=== PATIENT | female | born 1960 | race Caucasian/White ===

== ENCOUNTER 2021-02-03 10:14 | Emergency (ER) | payer MEDICARE ==
[~2021-02-03] VITALS: Ht 157.5 cm; Wt 77.2 kg
[~2021-02-03 10:14] MED LIST: ALPR0.5T; ALPR0.5T5; ALPR1TAB6 PO; FENT1PAT17 TP; LOPE1TAB4 PO; OXYC10TA PO; TOPI100T8 PO; TRAZ-118 PO; VENL150C PO; ZOLP10TA; [UNRECOGNIZED DRUG - OTHER]; [UNRECOGNIZED DRUG - OTHER]
--- NOTE | 2021-02-03 10:40 | PHYS DOC ---
Past Medical History Past Medical History: Hypertension Past Surgical History: Hysterectomy Additional Past Surgical Histo: Back surgery, neck surgery Alcohol Use: None Drug Use: None General Adult EDM: Chief Complaint: MULTIPLE COMPLAINTS HPI: HPI: 60 yo F PMH HTN, anxiety and depresssion, presents to the ED with complaints of chronic upper abdominal pain that she has been experiencing is November of this year. Reports she saw her primary care physician 2 weeks ago and was prescribed 2 antibiotics and Pepcid to treat " stomach infection." Reports her primary care physician ordered an ultrasound. She later went and saw Dr. Oliveira performed a CT image of the abdomen. Patient is unsure of the results. Has also been to "many urgent cares," for this and has been treated for "stomach and breast infections." States she has been referred to GI but is unable to get in. Symptoms are worse after she eats. Review of Systems: Review of Systems: Constitutional: Denies fever or chills. [] Eyes: Denies change in visual acuity. [] HENT: Denies nasal congestion or sore throat. [] Respiratory: Denies cough or shortness of breath. [] Cardiovascular: Denies chest pain or edema. [] GI: Denies vomiting, bloody stools or diarrhea. [] : Denies dysuria. [] Musculoskeletal: Denies back pain or joint pain. [] Integument: Denies rash. [] Neurologic: Denies headache, focal weakness or sensory changes. [] Endocrine: Denies polyuria or polydipsia. [] Lymphatic: Denies swollen glands. [] Psychiatric: Denies depression or anxiety. [] Heart Score: C/O Chest Pain: No Risk Factors: Risk Factors: DM, Current or recent (<one month) smoker, HTN, HLP, family history of CAD, obesity. Risk Scores: Score 0 - 3: 2.5% MACE over next 6 weeks - Discharge Home Score 4 - 6: 20.3% MACE over next 6 weeks - Admit for Clinical Observation Score 7 - 10: 72.7% MACE over next 6 weeks - Early Invasive Strategies Allergies: Allergies: Allergies Coded Allergies Type Severity Reaction Last Updated Verified No Known Drug Allergies 11/19/13 No Physical Exam: PE: Constitutional: Appears fatigued, tired but not toxic, obese HENT: Normocephalic, atraumatic, mildly dry mucous membranes Eyes: EOMI, conjunctiva normal, no discharge. Neck: Normal range of motion, supple, Cardiovascular: S1/2 present, regular rhythm Lungs & Thorax: Speaking in full sentences, bilateral equal chest rise, no tachypnea or increased work of breathing Abdomen: soft, no tenderness, Skin: Warm, dry, no erythema, no rash. [] Back: No tenderness, no CVA tenderness. [] Extremities: No tenderness, no cyanosis, no lower extremity edema Neurologic: Alert and oriented X 3, normal motor function, normal sensory function, no focal deficits noted. [] Psychologic: Affect normal, judgement normal, mood normal. [] EKG: EKG: Sinus rhythm at 78 bpm, no axis deviation, normal intervals, no T wave inversions, no ST elevations or ST depressions Radiology/Procedures: Radiology/Procedures: IMAGING REPORT Signed PATIENT: YOSSI EUGENE LACCOUNT: [id number] : 1960 LOCATION: ER AGE: 60 SEX: F EXAM STATUS: REG ER ORD. PHYSICIAN: VALERIA DE LA FUENTE DO REASON: abd pain PROCEDURE: PORTABLE CHEST 1V EXAM: XR CHEST 1V 02/03/2021 11:42 AM CLINICAL INDICATION: Abdominal pain COMPARISON: Chest radiograph 11/24/2013 TECHNIQUE: AP upright view of the FINDINGS: The heart is normal in size. Lungs are well-expanded. No consolidation, pleural effusion, or pneumothorax. Cervical fusion hardware is noted. IMPRESSION: No acute cardiopulmonary abnormality. Electronically signed by: Yamila Byrd MD (02/03/2021 12:35 PM) [id number] DICTATED and SIGNED BY: YAMILA BYRD MD DATE: 02/03/21 [id number] IMAGING REPORT Signed PATIENT: YOSSI EUGENE LACCOUNT: [id number] : 1960 LOCATION: ER AGE: 60 SEX: F EXAM STATUS: REG ER ORD. PHYSICIAN: VALERIA DE LA FUENTE DO REASON: abd pain PROCEDURE: CT ABD PELV W/ IV CONTRST ONLY Exam: CT abdomen/pelvis with intravenous contrast Indication: Abdominal pain Comparison: CT abdomen and pelvis 06/19/2010 Technique: Helical CT imaging performed of the abdomen and pelvis after the intravenous administration of Omnipaque 300 and contrast. Sagittal and coronal reformats were obtained. One or more of the following individualized dose reduction techniques were utilized for this examination: 1. Automated exposure control 2. Adjustment of the mA and/or kV according to patient size 3. Use of iterative reconstruction technique. Findings: Lower chest: Mild atelectasis in the lingula. Heart is normal in size. Liver: Normal. Gallbladder/Biliary Tree: The gallbladder is surgically absent. Mild common bile duct dilation is likely related to postcholecystectomy state. Pancreas: Unremarkable. Spleen: Normal. Adrenal Glands: Normal. Kidneys/Ureters/Bladder: Kidneys are normal in size. No hydronephrosis. Ureters and bladder are normal. Reproductive Organs: The uterus is surgically absent. No adnexal mass. Stomach, small bowel, and colon: Small hiatal hernia. No small bowel obstruction. Colon is normal. The appendix is not visualized but there is no inflammation in the right lower quadrant. Vasculature: Abdominal aorta is normal in caliber. Lymph Nodes: No lymphadenopathy. Peritoneum and retroperitoneum: There is no free fluid or free air. Bones: There is severe disc space narrowing at L4-L5 uncovering a disc bulge resulting in moderate canal and moderate to severe bilateral foraminal narrowing. Moderate disc space narrowing at L5-S1 with a disc bulge and moderate right foraminal narrowing. Moderate disc space narrowing at L5-S1 with endplate sclerosis and vacuum disc phenomenon. Impression: 1. No acute abnormality in the abdomen or pelvis. 2. Small hiatal hernia. 3. Degenerative disc disease at L4-L5 and L5-S1. Electronically signed by: Yamila Byrd MD (02/03/2021 1:00 PM) [id number] DICTATED and SIGNED BY: YAMILA BYRD MD DATE: 02/03/21 [id number] Course & Med Decision Making: Course & Med Decision Making Pertinent Labs and Imaging studies reviewed. (See chart for details) Patient presents the ED with complaints of chronic epigastric abdominal pain for the past 2 months. ED work-up does not reveal any acute pathology. Will benefit from GI evaluation. Patient very pleased with ketamine which has resolved her pain. Antibiotics prescribed for UTI. Will discharge home with strict ED return precautions were given for flulike symptoms, nausea and vomiting with dehydration and severe pain. Encouraged urgent outpatient follow- up with PMD and GI. Life-threatening processes were considered but are low suspicion at this time, given history, physical exam and ED workup. Pt was educated on all prescription medications and adverse effects. All patient's questions were answered and pt was stable at time of discharge. Life/limb-threatening differential includes but is not limited to, aortic dissection, aortic aneurysm, acute coronary syndrome, surgical abdomen (appendicitis, cholecystitis, ischemic bowel, strangulated hernia, etc), bowel obstruction or volvulus, bladder outlet obstruction, gastrointestinal bleeding, inflammatory bowel disease, peptic ulcer disease, ACS/CAD, sepsis, diverticular disease, ureterolithiasis, nephrolithiasis, ovarian or testicular torsion, ectopic , vaginal hemorrhage, or genitourinary infection. I spoken with the patient and her caregivers. I explained the patient's condition, diagnoses and treatment plan based on the information available to me at this time. I have answered the patient and her caregiver's questions and addressed any concerns. The patient and her caregivers have a good understanding of patient's diagnosis, condition and treatment plan as can be expected at this point. Vital signs have been stable. Patient's condition is stable and appropriate for discharge from the emergency department. Patient will pursue further outpatient evaluation with primary care physician or other designated or consulting physician as outlined in the discharge instructions. The patient and/or caregivers are agreeable to this plan of care and follow-up instructions have been explained in detail. The patient and/or caregivers have received these instructions in written form and have expressed an understanding of the discharge instructions. The patient and/or caregivers are aware that any significant change of condition or worsening of symptoms should prompt immediate return to this or the closest emergency department or call to 911. Ju Disclaimer: Ju Disclaimer: This electronic medical record was generated, in whole or in part, using a voice recognition dictation system. Departure Departure Impression: Primary Impression: Chronic abdominal pain Additional Impression: UTI (urinary tract infection) Disposition: 01 DC HOME SELF CARE/HOMELESS Condition: STABLE Referrals: NICK PANDYA (PCP) in 24-48 hours Patient Instructions: Abdominal Pain, Urinary Tract Infection Additional Instructions: FOLLOW UP WITH GASTROENTEROLOGY: Gastroenterology [facility] Address: [address] [place] [address] EMERGENCY DEPARTMENT GENERAL DISCHARGE INSTRUCTIONS Thank you for coming to [facility] Emergency Department (ED) today and trusting us with you care. We trust that you had a positive experience in our Emergency Department. If you wish to speak to the department management, you may call the Director at [phone]. YOUR FOLLOW UP INSTRUCTIONS ARE FOLLOWS: 1. Do you have a private Doctor? If you do not have a private doctor, please ask for a resource list of physicians or clinics that may be able to assist you with follow up care. 2. The Emergency Physicain has interpreted your x-rays. The X-Ray specialist will also review them. If there is a change in the findings, you will be notified in 48 hours when at all possible. 3. A lab test or culture has been done, your results will be reviewed and you will be notified if you need a change in treatment. ADDITIONAL INSTRUCTIONS AND INFORMATION: 1. Your care today has been supervised by a physician who is specially trained in emergency care. Many problems require more than one evaluation for a complete diagnosis and treatment. We recommend that you schedule your follow up appointment as recommended to ensure complete treatment of you illness or injury. If you are unable to obtain follow up care and continue to have a problem, or if your condition worsens, we recommend that you return to the ED. 2. We are not able to safely determine your condition over the phone nor are we able to give sound medical advice over the phone. For these safety reasons, if you call for medical advice we will ask you to come to the ED for further evaluation. 3. If you have any questions regarding these discharge instructions please call the ED at [phone]. SAFETY INFORMATION: In the interest of safety, wellness, and injury prevention; we encourage you to wear your sealbelt, if you smoke; quite smoking, and we encourage family to use a protective helmet for bicycling and other sporting events that present an increased risk for head injury. IF YOUR SYMPTOMS WORSEN OR NEW SYMPTOMS DEVELOP, OR YOU HAVE CONCERNS ABOUT YOUR CONDITION; OR IF YOUR CONDITION WORSENS WHILE YOU ARE WAITING FOR YOUR FOLLOW UP APPOINTMENT; EITHER CONTACT YOUR PRIMARY CARE DOCTOR, THE PHYSICIAN WHOSE NAME AND NUMBER YOU WERE GIVEN, OR RETURN TO THE ED IMMEDIATELY. Scripts Cefpodoxime Proxetil (CEFPODOXIME PROXETIL) 200 Mg Tablet 1 TAB PO BID for 10 Days, #20 TAB Prov: VALERIA DE LA FUENTE DO 02/03/21 VALERIA DE LA FUENTE DO Feb 03, 2021 10:40
[2021-02-03 11:14] LABS: BILIRUBIN,URINE SMALL (NEG); CLARITY,URINE CLOUDY; COLOR,URINE AMBER; NITRITE,URINE NEGATIVE (NEG); PH,URINE 5.5 (<5.0-8.0); PROTEIN,URINE 30 mg/dL (NEG-TRACE)
[2021-02-03 11:20] LABS: BARBITURATES NEG (NEG); BENZODIAZEPINES NEG (NEG); CANNABINOIDS NEG (NEG); COCAINE NEG (NEG); METHADONE NEG (NEG); OPIATES POS (NEG); PHENCYCLIDINE NEG (NEG)
[2021-02-03 11:21] LABS: AMPHETAMINE/METHAMPHETAMINE NEG (NEG)
[2021-02-03] MEDS ORDERED: KETAMINE HCL 500 MG/10 ML VIAL. IV ONE (11:30)
[2021-02-03] MEDS ORDERED: METOCLOPRAMIDE HCL 10 MG/2 ML VIAL. IVP ONE (11:30)
[2021-02-03] MEDS ORDERED: FAMOTIDINE 20 MG/2 ML VIAL IVP ONE (11:30)
[2021-02-03 11:35] LABS: BACTERIA,URINE FEW /HPF (0-FEW); HYALINE CASTS, URINE FEW /HPF; RBC,URINE RARE /HPF (0-2)
[2021-02-03 11:36] LABS: AMORPHOUS SEDIMENT,UR PRESENT /HPF
[2021-02-03 11:48] LABS: BASO % 0 % (0-3); EOS # 0.1 x10^3/uL (0.0-0.7); EOS % 1 % (0-3); HEMATOCRIT 36.4 % (36.0-47.0); HEMOGLOBIN 12.3 g/dL (12.0-15.5); LYMPH # 2.3 x10^3/uL (1.0-4.8); LYMPH % 29 % (24-48); MEAN CORPUSCULAR HEMOGLOBIN 31 pg (25-35); MEAN CORPUSCULAR HGB CONC 34 g/dL (31-37); MEAN CORPUSCULAR VOLUME 92 fL (79-100); MONO # 0.5 x10^3/uL (0.0-1.1); MONO % 7 % (0-9); NEUT % 63 % (31-73); PLATELET COUNT 360 x10^3/uL (140-400); RED BLOOD COUNT 3.96 x10^6/uL (3.50-5.40); RED CELL DISTRIBUTION WIDTH 13.8 % (11.5-14.5); WHITE BLOOD COUNT 7.9 x10^3/uL (4.0-11.0)
[2021-02-03 11:49] LABS: CALCIUM 8.9 mg/dL (8.5-10.1); GFR 56.9; POTASSIUM 4.1 mmol/L (3.5-5.1)
[2021-02-03 11:55] LABS: ALBUMIN 3.3 g/dL (3.4-5.0); DIRECT BILIRUBIN 0.1 mg/dL (0.0-0.2); TOTAL BILIRUBIN 0.2 mg/dL (0.2-1.0); TOTAL PROTEIN 6.4 g/dL (6.4-8.2)
[2021-02-03] MEDS ORDERED: CONTRAST GIVEN. MC PRN (12:00)
[2021-02-03] MEDS ORDERED: IOHEXOL 300 MG/ML 100ML VIAL. IV ONE (12:00)
--- NOTE | 2021-02-03 12:37 | RAD ---
EXAM: XR CHEST 1V 02/03/2021 11:42 AM CLINICAL INDICATION: Abdominal pain COMPARISON: Chest radiograph 11/24/2013 TECHNIQUE: AP upright view of the FINDINGS: The heart is normal in size. Lungs are well-expanded. No consolidation, pleural effusion, or pneumothorax. Cervical fusion hardware is noted. IMPRESSION: No acute cardiopulmonary abnormality. Electronically signed by: Yamila Byrd MD (02/03/2021 12:35 PM) [id number]
--- NOTE | 2021-02-03 13:02 | RAD ---
Exam: CT abdomen/pelvis with intravenous contrast Indication: Abdominal pain Comparison: CT abdomen and pelvis 06/19/2010 Technique: Helical CT imaging performed of the abdomen and pelvis after the intravenous administratio n of Omnipaque 300 and contrast. Sagittal and coronal reformats were obtained. One or more of the following individualized dose reduction techniques were utilized for this examinat ion: 1. Automated exposure control 2. Adjustment of the mA and/or kV according to patient size 3. Use of iterative reconstruction technique. Findings: Lower chest: Mild atelectasis in the lingula. Heart is normal in size. Liver: Normal. Gallbladder/Biliary Tree: The gallbladder is surgically absent. Mild common bile duct dilation is lik jon related to postcholecystectomy state. Pancreas: Unremarkable. Spleen: Normal. Adrenal Glands: Normal. Kidneys/Ureters/Bladder: Kidneys are normal in size. No hydronephrosis. Ureters and bladder are becky l. Reproductive Organs: The uterus is surgically absent. No adnexal mass. Stomach, small bowel, and colon: Small hiatal hernia. No small bowel obstruction. Colon is normal. Th e appendix is not visualized but there is no inflammation in the right lower quadrant. Vasculature: Abdominal aorta is normal in caliber. Lymph Nodes: No lymphadenopathy. Peritoneum and retroperitoneum: There is no free fluid or free air. Bones: There is severe disc space narrowing at L4-L5 uncovering a disc bulge resulting in moderate ca nal and moderate to severe bilateral foraminal narrowing. Moderate disc space narrowing at L5-S1 with a disc bulge and moderate right foraminal narrowing. Moderate disc space narrowing at L5-S1 with end plate sclerosis and vacuum disc phenomenon. Impression: 1. No acute abnormality in the abdomen or pelvis. 2. Small hiatal hernia. 3. Degenerative disc disease at L4-L5 and L5-S1. Electronically signed by: Yamila Byrd MD (02/03/2021 1:00 PM) [id number]
--- NOTE | 2021-02-03 13:07 | EKG ---
[facility] [address] [place] [address] Test Date: 2021-02-03 Test Time: 11:42:15 Pat Name: YOSSI EUGENE Department: Room: Gender: F [employer]: : 1960 Requested By: VALERIA DE LA FUENTE Order Number: [id number] Reading MD: Measurements Intervals [place] Rate: 78 P: 43 DC: 152 QRS: 31 QRSD: 84 T: 40 QT: 386 QTc: 444 Interpretive Statements SINUS RHYTHM NORMAL ECG RI6.02 No previous ECG available for comparison
[2021-02-03] MEDS ORDERED: CEFP200T PO (13:24)
[2021-02-03 13:30] VITALS: BP 137/76
== END 2021-02-03 14:13 | disposition home or self-care (01) ==
LOC: ER 10:14
DX: N39.0 Urinary tract infection, site not specified (principal); G89.29 Other chronic pain; M51.36 Other intervertebral disc degeneration, lumbar region; K44.9 Diaphragmatic hernia without obstruction or gangrene; I10 Essential (primary) hypertension; Z90.710 Acquired absence of both cervix and uterus; Z98.890 Other specified postprocedural states; Z79.899 Other long term (current) drug therapy
CPT/HCPCS: 36415; 71045; 74177; 80048; 80076; 80307; 81001; 82550; 83690; 84484; 85025; 87077; 87086; 87186; 93005; 96374; 96375; 99285; J2765; J3490; Q9967